=== PATIENT | male | born 1975 | race Caucasian/White ===

== ENCOUNTER 2016-10-12 06:17 | Emergency (ER) | payer MEDICAID ==
[~2016-10-12] VITALS: Ht 167.6 cm; Wt 99.0 kg
[~2016-10-12 06:17] MED LIST: DOCU-144 PO; HYDR25SU23 PR
[2016-10-12 06:26] VITALS: Ht 167.6 cm; Wt 99.0 kg
[2016-10-12] MEDS ORDERED: morphine 4 MG/ML VIAL IV STA (07:13)
[2016-10-12] MEDS ORDERED: ONDANSETRON 4 MG INJ IV STA (07:13)
[2016-10-12 07:57] LABS: BASOPHILS % 0.5 % (0.0-2.0); EOSINOPHILS # 0.1 10^3/ul (0.0-0.5); EOSINOPHILS % 1.5 % (0.0-7.0); HEMATOCRIT 45.2 % (42.0-52.0); LYMPHOCYTES # 1.4 10^3/ul (0.8-2.9); LYMPHOCYTES % 22.8 % (15.0-51.0); MEAN CORPUSCULAR HEMOGLOBIN 31.9 pg (29.0-33.0); MEAN CORPUSCULAR HGB CONC 35.4 g/dl (32.0-37.0); MEAN PLATELET VOLUME 11.9 fl (7.4-10.4); MONOCYTE # 0.7 10^3/ul (0.3-0.9); MONOCYTES % 10.8 % (0.0-11.0); NEUTROPHIL # 3.9 10^3/ul (1.6-7.5); NEUTROPHILS % 64.1 % (39.0-77.0); PLATELET COUNT 199 10^3/UL (140-415); RED BLOOD COUNT 5.02 10^6/ul (4.70-6.10); RED CELL DISTRIBUTION WIDTH 12.8 % (11.5-14.5); WHITE BLOOD COUNT 6.1 10^3/ul (4.8-10.8)
[2016-10-12 07:59] LABS: ADD SCAN DIFF NO
[2016-10-12 08:00] LABS: ADD UMIC NO; UR ASCORBIC ACID NEGATIVE (NEGATIVE); UR BILIRUBIN (Dip) NEGATIVE (NEGATIVE); UR BLOOD (Dip) NEGATIVE (NEGATIVE); UR CLARITY CLEAR (CLEAR); UR COLOR YELLOW (YELLOW); UR GLUCOSE (Dip) NEGATIVE (NEGATIVE); UR KETONES (Dip) NEGATIVE (NEGATIVE); UR LEUKOCYTE ESTERASE (Dip) NEGATIVE Leu/ul (NEGATIVE); UR NITRITE (Dip) NEGATIVE (NEGATIVE); UR SPECIFIC GRAVITY (Dip) 1.021 (1.003-1.030); UR TOTAL PROTEIN (Dip) NEGATIVE (NEGATIVE); UR UROBILINOGEN (Dip) NEGATIVE (NEGATIVE)
[2016-10-12 08:14] LABS: ALBUMIN 4.6 g/dl (3.3-4.9); BILIRUBIN,INDIRECT 0.4 mg/dl (0-1.1); BILIRUBIN,TOTAL 0.4 mg/dl (0.2-1.3); CREATININE 0.82 mg/dl (0.61-1.24); POTASSIUM 4.1 mmol/L (3.5-5.1); TOTAL PROTEIN 6.9 g/dl (6.1-8.1)
--- NOTE | 2016-10-12 08:30 | ERD ---
ER Documentation Chief Complaint Date/Time DATE: 10/12/16 TIME: 08:27 Chief Complaint left inguinal pain x 2 weeks HPI This 41-year-old male who presents the emergency department today complaining of left-sided groin pain for the past 2 weeks. Patient states that 1 month ago he had similar symptoms with the pain resolved. States he has pain when he walks. States he works in construction. Denies any fevers or chills, nausea or vomiting, testicular pain.. ROS All systems reviewed and are negative except as per history of present illness. Medications Home Meds Active Scripts Docusate Sodium* (Colace*) 100 Mg Capsule, 100 MG PO TID, #30 CAP Prov:SOO HIGUERA PA-C 02/11/16 Hydrocortisone Acetate (Anusol-Hc) 25 Mg Supp.rect, 1 SUPP IL QHS Y for HEMORROID PAIN/ITCHING, #12 SUPP.RECT Prov:SOO HIGUERA PA-C 02/11/16 Allergies Allergies: Coded Allergies: No Known Allergy (Unverified , 06/20/14) PMhx/Soc History of Surgery: No Anesthesia Reaction: No Hx Neurological Disorder: No Hx Respiratory Disorders: No Hx Cardiac Disorders: No Hx Psychiatric Problems: No Hx Miscellaneous Medical Probl: No Hx Alcohol Use: No Hx Substance Use: No Hx Tobacco Use: No Smoking Status: Former smoker Physical Exam Vitals Vital Signs Date Time Temp Pulse Resp B/P Pulse Ox O2 Delivery O2 Flow Rate FiO2 10/12/16 06:26 97.6 70 18 131/82 97 Physical Exam Const: No acute distress Head: Atraumatic Eyes: Normal Conjunctiva ENT: Normal External Ears, Nose and Mouth. Neck: Full range of motion..~ No meningismus. Resp: Clear to auscultation bilaterally Cardio: Regular rate and rhythm, no murmurs Abd: Soft, left-sided groin pain along pelvis. non distended. Normal bowel sounds. No right lower quadrant pain. No left lower quadrant pain. : Uncircumcised penis. No purulent drainage. Testicular exam with tenderness left testicle. Skin: No petechiae or rashes Back: No midline or flank tenderness Ext: No cyanosis, or edema Neur: Awake and alert Psych: Normal Mood and Affect Result Diagram: 10/12/16 0735 10/12/16 0735 Results 24 hrs Laboratory Tests Test 10/12/16 07:35 White Blood Count 6.110^3/ul Red Blood Count 5.0210^6/ul Hemoglobin 16.0g/dl Hematocrit 45.2% Mean Corpuscular Volume 90.0fl Mean Corpuscular Hemoglobin 31.9pg Mean Corpuscular Hemoglobin Concent 35.4g/dl Red Cell Distribution Width 12.8% Platelet Count 31329^3/UL Mean Platelet Volume 11.9fl Neutrophils % 64.1% Lymphocytes % 22.8% Monocytes % 10.8% Eosinophils % 1.5% Basophils % 0.5% Nucleated Red Blood Cells % 0.0/100WBC Neutrophils # 3.910^3/ul Lymphocytes # 1.410^3/ul Monocytes # 0.710^3/ul Eosinophils # 0.110^3/ul Basophils # 0.010^3/ul Nucleated Red Blood Cells # 0.010^3/ul Urine Color YELLOW Urine Clarity CLEAR Urine pH 6.0 Urine Specific [place] 1.021 Urine Ketones NEGATIVEmg/dL Urine Nitrite NEGATIVEmg/dL Urine Bilirubin NEGATIVEmg/dL Urine Urobilinogen NEGATIVEmg/dL Urine Leukocyte Esterase NEGATIVELeu/ul Urine Hemoglobin NEGATIVEmg/dL Urine Glucose NEGATIVEmg/dL Urine Total Protein NEGATIVEmg/dl Sodium Level 141mmol/L Potassium Level 4.1mmol/L Chloride Level 106mmol/L Carbon Dioxide Level 26mmol/L Anion Gap 13 Blood Urea Nitrogen 19mg/dl Creatinine 0.82mg/dl Glucose Level 109mg/dl Calcium Level 9.0mg/dl Total Bilirubin 0.4mg/dl Direct Bilirubin 0.00mg/dl Indirect Bilirubin 0.4mg/dl Aspartate Amino Transf (AST/SGOT) 26IU/L Alanine Aminotransferase (ALT/SGPT) 41IU/L Alkaline Phosphatase 110IU/L Total Protein 6.9g/dl Albumin 4.6g/dl Globulin 2.30g/dl Albumin/Globulin Ratio 2.00 Lipase 73U/L Current Medications Medications (Trade) Dose Ordered Sig/Dimitry Route PRN Reason Start Time Stop Time Status Last Admin Dose Admin Morphine Sulfate (morphine) 4 mg ONCE STAT IV 10/12/16 07:13 10/12/16 07:15 DC 10/12/16 08:17 Ondansetron HCl (Zofran Inj) 4 mg ONCE STAT IV 10/12/16 07:13 10/12/16 07:15 DC 10/12/16 08:17 Ketorolac Tromethamine (Toradol) 30 mg ONCE STAT IV 10/12/16 09:07 10/12/16 09:09 DC 10/12/16 09:17 DIAGNOSTIC IMAGING REPORT Patient: SHARIF KING : 1975 Age: 41 Sex: M MR #: [id number] DOS: 10/12/16 0713 Ordering MD: KAIT CASEY PA-C Location: E/R Room/Bed: PROCEDURE: CT Abdomen and Pelvis without contrast. CLINICAL INDICATION: Left inguinal/groin pain into testicle TECHNIQUE: CT scan of the abdomen and pelvis without contrast was performed on a multidetector high-resolution CT scanner. The patient was scanned without intravenous contrast. Coronal and sagittal reformatted images were obtained from the axial source images. Images were reviewed on a high-resolution PACS workstation. The total exam CTDI equals 20.08 mGy and the total exam DLP equals 1319.04 mGy-cm. One or more the following dose reduction techniques were utilized: Automated exposure control, adjustment of the mA and / or kV according to patient's size, or use of iterative reconstruction technique. COMPARISON: Testicular ultrasound of 10/12/2016 FINDINGS: Minimal dependent atelectasis in posterior lower lungs. Very small umbilical hernia containing fat only. No abnormality is seen in the kidneys, spleen, liver , gallbladder, pancreas. No biliary dilatation is seen. No renal or ureteral stone is seen. Stomach is not distended. No definite abnormality of the stomach is seen. No abdominal aortic aneurysm is seen. No abnormality is seen in the bladder. Minimal right central calcification in prostate. The prostate is not enlarged. No inguinal hernia is seen. No enlarged lymph nodes are seen in the abdomen or pelvis. No ascites is seen. Diverticula in sigmoid colon. There is no specific evidence of acute diverticulitis seen. Diverticula also seen in transverse colon. No dilated small bowel loops are seen. There is an unremarkable appendix. Small scattered likely bone islands. Mild osteoarthrosis at hips. Degenerative changes at sacroiliac joints. Thoracolumbar spondylosis. IMPRESSION: Colonic diverticulosis. No specific evidence of acute diverticulitis seen. No acute abnormality seen. Please see above. RPTAT: HJES .Vinny Young MD, Date Time Electronically viewed and signed by .Vinny Young MD, MD on 10/12/2016 08:34 .S/ CC: KAIT CASEY PA-C DIAGNOSTIC IMAGING REPORT Patient: SHARIF KING : 1975 Age: 41 Sex: M MR #: [id number] DOS: 10/12/16 0000 Ordering MD: KAIT CASEY PA-C Location: E/R Room/Bed: PROCEDURE: US Scrotum. CLINICAL INDICATION: Testicular pain left side TECHNIQUE: Multiple sonographic images of the scrotal region were obtained utilizing a linear array transducer with grayscale and color-flow Doppler imaging. The images were reviewed on a high-resolution PACS workstation. COMPARISON: No prior studies are available for comparison. FINDINGS: The right testicle is well visualized and has a normal echotexture. No focal areas of abnormal echogenicity are visualized. The right testicle measures 4.3 x 2.4 x 3 cm. There is normal color-flow and arterial and venous flow. The right epididymis is visualized and unremarkable in appearance. There is normal color-flow. The left testicle is well visualized and has a normal echotexture. No focal areas of abnormal echogenicity are visualized. The left testicle measures 4.4 x 2.5 x 2.7 cm. There is normal color-flow and arterial and venous flow. The left epididymis is visualized and is unremarkable in appearance. There is normal color-flow. The scrotal wall is unremarkable. No swelling or edema is seen. No other incidental abnormality is identified. IMPRESSION: 1. Unremarkable testicular ultrasound. No evidence of testicular torsion. RPTAT: HJES .Vinny Young MD, MD Date Time Electronically viewed and signed by .Vinny Young MD, MD on 10/12/2016 08:37 .S/ CC: KAIT CASEY PA-C Procedures/MDM This 41-year-old male who presents the emergency department today complaining of left-sided groin pain for the past 2 weeks. Patient had something similar approximately 1 month ago however the pain had resolved at that time he presents today because of increased pain. Patient denied any testicular pain however on exam he did have pain and tenderness. He has tenderness and his left -sided area of the pelvis. Given this I did obtain laboratory work as well as imaging. Laboratory work shows no elevated white blood cell count. He is not anemic. Platelets are within normal limits. Electrolytes are within normal limits. Glucose within normal limits. Liver functions within normal limits. Lipase within normal limits. UA is negative for infection or hematuria. Testicular ultrasound shows an unremarkable testicular ultrasound. There is no evidence of testicular torsion. There is no swelling or edema seen. There is normal Doppler flow to both testicles. CT abdomen pelvis noncontrast shows colonic diverticulosis. There is no specific evidence of acute diverticulitis. No acute abnormality seen. There is no inguinal hernia seen. There are no enlarged lymph nodes. No dilated small bowel loops are seen. There is unremarkable appendix. There is mild osteoarthrosis at hips. Patient given morphine and Zofran for pain. Pain persisted and he was therefore given Tylenol. Patient symptoms at this time is consistent with groin pain and diverticulosis. May be related to musculoskeletal pain or hip arthritis patient be given a prescription for [place], Naprosyn and Tylenol for home. At this time the patient is stable for discharge and outpatient management. Patient should follow up with their PCP in the next 1-2 days. They may return to the emergency department sooner for any persistent or worsening of symptoms. Patient understood and agreed with the plan. KAIT CASEY PA-C Oct 12, 2016 08:30
--- NOTE | 2016-10-12 08:34 | RADRPT ---
PROCEDURE: CT Abdomen and Pelvis without contrast. CLINICAL INDICATION: Left inguinal/groin pain into testicle TECHNIQUE: CT scan of the abdomen and pelvis without contrast was performed on a multidetector hig h-resolution CT scanner. The patient was scanned without intravenous contrast. Coronal and sagittal reformatted images were obtained from the axial source images. Images were reviewed on a high-resol [employer] PACS workstation. The total exam CTDI equals 20.08 mGy and the total exam DLP equals 1319.04 m Gy-cm. One or more the following dose reduction techniques were utilized: Automated exposure control, adjus tment of the mA and / or kV according to patient's size, or use of iterative reconstruction techniqu e. COMPARISON: Testicular ultrasound of 10/12/2016 FINDINGS: Minimal dependent atelectasis in posterior lower lungs. Very small umbilical hernia containing fat only. No abnormality is seen in the kidneys, spleen, liver, gallbladder, pancreas. No biliary dilata tion is seen. No renal or ureteral stone is seen. Stomach is not distended. No definite abnormalit y of the stomach is seen. No abdominal aortic aneurysm is seen. No abnormality is seen in the blad kim. Minimal right central calcification in prostate. The prostate is not enlarged. No inguinal h ernia is seen. No enlarged lymph nodes are seen in the abdomen or pelvis. No ascites is seen. Div erticula in sigmoid colon. There is no specific evidence of acute diverticulitis seen. Diverticula also seen in transverse colon. No dilated small bowel loops are seen. There is an unremarkable ap pendix. Small scattered likely bone islands. Mild osteoarthrosis at hips. Degenerative changes at sacroiliac joints. Thoracolumbar spondylosis. IMPRESSION: Colonic diverticulosis. No specific evidence of acute diverticulitis seen. No acute abnormality see n. Please see above. RPTAT: HJES .Vinny Young MD, MD Date Time Electronically viewed and signed by .Vinny Young MD, on 10/12/2016 08:34 .S/
--- NOTE | 2016-10-12 08:37 | RADRPT ---
PROCEDURE: US Scrotum. CLINICAL INDICATION: Testicular pain left side TECHNIQUE: Multiple sonographic images of the scrotal region were obtained utilizing a linear arra y transducer with grayscale and color-flow Doppler imaging. The images were reviewed on a high-resol [employer] PACS workstation. COMPARISON: No prior studies are available for comparison. FINDINGS: The right testicle is well visualized and has a normal echotexture. No focal areas of abnormal echog enicity are visualized. The right testicle measures 4.3 x 2.4 x 3 cm. There is normal color-flow an d arterial and venous flow. The right epididymis is visualized and unremarkable in appearance. There is normal color-flow. The left testicle is well visualized and has a normal echotexture. No focal areas of abnormal echoge nicity are visualized. The left testicle measures 4.4 x 2.5 x 2.7 cm. There is normal color-flow and arterial and venous flow. The left epididymis is visualized and is unremarkable in appearance. Ther e is normal color-flow. The scrotal wall is unremarkable. No swelling or edema is seen. No other incidental abnormality is identified. IMPRESSION: 1. Unremarkable testicular ultrasound. No evidence of testicular torsion. RPTAT: HJES .Vinny Young MD, MD Date Time Electronically viewed and signed by .Vinny Young MD, on 10/12/2016 08:37 .S/
[2016-10-12] MEDS ORDERED: KETOROLAC 30 MG INJ IV STA (09:07)
[2016-10-12] MEDS ORDERED: NAPR-260 PO (09:29)
[2016-10-12] MEDS ORDERED: HYDR-906 PO (09:29)
[2016-10-12 09:46] VITALS: BP 128/79; PULSE 81; RESP 18; TEMP 97.9
== END 2016-10-12 10:05 | disposition home or self-care (01) ==
LOC: E/R 06:17
DX: R10.32 Left lower quadrant pain (principal); Z87.891 Personal history of nicotine dependence
CPT/HCPCS: 74176; 76870; 80053; 81003; 83690; 85025; J1885; J2270; J2405; 36415; 96374; 96375